=== PATIENT | male | born 1965 | race Caucasian/White ===

== ENCOUNTER 2022-06-03 15:24 | Observation (INO) | payer MEDICARE ==
[2022-06-03 16:20] LABS: Basophil (Absolute #) 0.04 x10^3/uL (0-0.4); Eosinophil % 0.3 % (0.00-5.0); Eosinophil (Absolute #) 0.02 x10^3/uL (0-0.5); Hematocrit 41.6 % (42-50); Hemoglobin 14.5 g/dL (12.5-18.0); Lymphocytes % 11.5 % (24.0-44.0); Mean Cell Volume 94.3 fL (78-100); Mean Corpuscular Hemoglobin 32.9 pg (26-32); Mean Corpuscular Hgb Concent. 34.9 g/dL (32-36); Mean Platelet Volume 9.4 fL (7.5-11.0); Monocyte (Absolute #) 1.09 x10^3/uL (0.0-1.3); Monocytes % 17.9 % (0.0-12.0); Neutrophil % 69.1 % (36.0-66.0); Platelet Count 217 x10^3/uL (150-450); Red Blood Count 4.41 x10^6/uL (4.1-5.6); Red Cell Distribution Width 12.8 % (11.5-14.0); White Blood Count 6.1 x10^3/uL (4.0-10.5)
--- NOTE | 2022-06-03 16:31 | ERPHSYRPT ---
- History of Present Illness Time Seen by Provider: 06/03/22 15:40 Exam Limitations: no limitations Patient Subjective Stated Complaint: pt here for fast heart rate today, seen cardiology today and was told to come to er if not better, he aslo co a headache and abd pain Triage Nursing Assessment: pt alert, resp easy, skin w/d/p. 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 Patient states he has been feeling unwell for the past several days. 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 Patient was sent to our ED for further evaluation. Patient denies chest pain. RN documents some abdominal pain however patient denied abdominal pain to EDMD. No diarrhea. No rash. No fever. No vomiting. Patient states he feels generalized fatigue. Symptoms are mild to moderate in intensity. No specific worsening improving factors. Patient voices no other complaints or concerns at this time. Timing/Duration: today Severity: moderate Modifying Factors: Improves With: immobilization Associated Symptoms: denies symptoms Allergies/Adverse Reactions: Tetanus Vaccines and Toxoid Allergy (Verified 06/03/22 15:29) Home Medications: Albuterol Sulfate [Albuterol Sulfate Hfa] 1 ea DAILY 06/03/22 [History] Desvenlafaxine [Desvenlafaxine ER] 1 ea DAILY 06/03/22 [History] Lisinopril 20 mg [Zestril 20 MG] 1 ea DAILY 06/03/22 [History] Metoprolol Tartrate 25 mg [Lopressor 25MG Tab] 25 mg PO DAILY 06/03/22 [History] Hx Tetanus, Diphtheria Vaccination/Date Given: No Hx Influenza Vaccination/Date Given: No Hx Pneumococcal Vaccination/Date Given: No Immunizations Up to Date: Yes Travel Risk - International Travel Have you traveled outside of the country in past 3 weeks: No - Coronavirus Screening Are you exhibiting any of the following symptoms?: No Close contact with a COVID-19 positive Pt in past 14-21 Days: No - Vaccine Status Have you recieved a Covid-19 vaccination: Yes 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: [employer] - Vaccination Dates Date of 2cond Vaccination (if applicable): 2020 - Review of Systems Constitutional: No Symptoms, No Fever, No Chills Eyes: No Symptoms Ears, Nose, & Throat: No Symptoms Respiratory: No Symptoms, No Cough, No Dyspnea Cardiac: No Symptoms, No Chest Pain, No Edema, No Syncope Abdominal/Gastrointestinal: No Symptoms, No Abdominal Pain, No Nausea, No Vomiting, No Diarrhea Genitourinary Symptoms: No Symptoms, No Dysuria Musculoskeletal: No Symptoms, No Back Pain, No Neck Pain Skin: No Symptoms, No Rash Neurological: No Symptoms, No Dizziness, No Focal Weakness, No Sensory Changes Psychological: No Symptoms Endocrine: No Symptoms Hematologic/Lymphatic: No Symptoms Immunological/Allergic: No Symptoms All Other Systems: Reviewed and Negative - Past Medical History Pertinent Past Medical History: Yes Neurological History: No Pertinent History Cardiac History: Coronary Artery Disease, Hypertension, Myocardial Infarction (CT) Respiratory History: COPD Endocrine Medical History: No Pertinent History - Past Surgical History Past Surgical History: Yes Cardiac: CABG Musculoskeletal: Orthopedic Surgery Other Surgical History: knee - Social History Smoking Status: Former smoker Exposure to second hand smoke: No Drug Use: marijuana Patient Lives Alone: No - Nursing Vital Signs Nursing Vital Signs: Initial Vital Signs Temperature 97.0 F 06/03/22 15:34 Pulse Rate 128 H 06/03/22 15:34 Respiratory Rate 18 06/03/22 15:34 Blood Pressure 131/108 06/03/22 15:34 O2 Sat by Pulse Oximetry 98 06/03/22 15:34 Pain Scale Pain Intensity 2 - Physical Exam General Appearance: no apparent distress, alert Eye Exam: PERRL/EOMI, eyes nml inspection Ears, Nose, Throat Exam: normal ENT inspection, TMs normal, pharynx normal, moist mucous membranes Neck Exam: normal inspection, non-tender, supple, full range of motion Respiratory Exam: normal breath sounds, lungs clear, airway intact, No respiratory distress Cardiovascular Exam: normal heart sounds, normal peripheral pulses, other (Well- healed midline sternotomy scar, sinus tachycardia) Gastrointestinal/Abdomen Exam: soft, normal bowel sounds, No tenderness, No mass Back Exam: normal inspection, normal range of motion, No CVA tenderness, No vertebral tenderness Extremity Exam: normal inspection, normal range of motion, pelvis stable Neurologic Exam: alert, oriented x 3, cooperative, normal mood/affect, nml cerebellar function, nml station & gait, sensation nml, No motor deficits Skin Exam: normal color, warm, dry, No rash Lymphatic Exam: No adenopathy SpO2 Interpretation: normal SpO2: 98 O2 Delivery: Room Air - Course Nursing assessment & vital signs reviewed: Yes EKG Interpreted by Me: RATE ([id number]), Sinus Tach, NORMAL AXIS, NORMAL INTERVALS (Minimal ST depression anterolateral leads) - Radiology Exams Chest X-ray Interpretation: Teleradiologist Report (Lung granuloma otherwise negative chest x-ray) - CT Exams Abdomen/Pelvis CT Interpretation: Tele-radiologist Report (No comps. Mild to moderate fluid distended small and large bowel loops with fluid leveling ileus versus enterocolitis. Fatty liver) Chest CT Interpretation: Tele-radiologist Report (No comps. Negative PE, mild e mphysema small hiatal hernia mild GERD) Ordered Tests: Active Orders 24 hr Category Date Time Status Manager Intranet STAT Care 06/03/22 15:48 Active EKG-ER Only STAT Care 06/03/22 15:47 Active IV Insertion STAT Care 06/03/22 15:47 Active ABDOMEN AND PELVIS W CONTRAST [CT] Stat Exams 06/03/22 17:21 Taken CHEST 1 VIEW (PORTABLE) Stat Exams 06/03/22 15:48 Completed CHEST WITH CONTRAST [CT] Stat Exams 06/03/22 19:01 Taken CBC W DIFF Stat Lab 06/03/22 16:15 Completed CMP Stat Lab 06/03/22 16:15 Completed LIPASE Stat Lab 06/03/22 16:15 Completed MAGNESIUM Stat Lab 06/03/22 16:15 Completed NT PRO BNP Stat Lab 06/03/22 16:15 Completed TROPONIN Q3H Lab 06/03/22 16:15 Completed TROPONIN Q3H Lab 06/03/22 19:25 Completed TROPONIN Q3H Lab 06/03/22 22:21 Received TROPONIN Q3H Lab 06/04/22 01:00 Ordered TROPONIN Q3H Lab 06/04/22 04:00 Ordered TSH [TSH, 3RD Generation] Stat Lab 06/03/22 17:53 Completed Urine Triage Profile Stat Lab 06/03/22 17:49 Completed Transfer Order Routine Transfer 06/03/22 Ordered Lab/Rad Data: Laboratory Result Diagrams 06/03/22 16:15 06/03/22 16:15 Laboratory Results 06/03/22 06/03/22 06/03/22 Range/Units 20:45 19:25 17:53 WBC (4.0-10.5) x10^3/uL RBC (4.1-5.6) x10^6/uL Hgb (12.5-18.0) g/dL Hct (42-50) % MCV (78-100) fL MCH (26-32) pg MCHC (32-36) g/dL RDW (11.5-14.0) % Plt Count (150-450) x10^3/uL MPV (7.5-11.0) fL Gran % (36.0-66.0) % Immature Gran % (Auto) (0.00-0.4) % Nucleat RBC Rel Count (0.00-0.1) % Eos # (Auto) (0-0.5) x10^3/uL Immature Gran # (Auto) (0.00-0.03) x10^3u/L Absolute Lymphs (auto) (1.0-4.6) x10^3/uL Absolute Monos (auto) (0.0-1.3) x10^3/uL Absolute Nucleated RBC (0.00-0.01) x10^3u/L Lymphocytes % (24.0-44.0) % Monocytes % (0.0-12.0) % Eosinophils % (0.00-5.0) % Basophils % (0.0-0.4) % Absolute Granulocytes (1.4-6.9) x10^3/uL Basophils # (0-0.4) x10^3/uL Sodium (137-145) mmol/L Potassium (3.5-5.1) mmol/L Chloride (98-107) mmol/L Carbon Dioxide (22-30) mmol/L Anion Gap (5-15) MEQ/L BUN (9-20) mg/dL Creatinine (0.66-1.25) mg/dL Estimated GFR ML/MIN Glucose (74-106) mg/dL Calcium (8.4-10.2) mg/dL Magnesium (1.6-2.3) mg/dL Total Bilirubin (0.2-1.3) mg/dL AST (17-59) U/L ALT (0-50) U/L Alkaline Phosphatase (38-126) U/L Troponin I < 0.012 (0.000-0.034) ng/mL NT-Pro-B Natriuret Pep (0-900) pg/mL Serum Total Protein (6.3-8.2) g/dL Albumin (3.5-5.0) g/dL Lipase (23-300) U/L TSH 3rd Generation 0.913 (0.47-4.68) mIU/L Urine Opiates Level (NEGATIVE) Ur Methadone (NEGATIVE) Urine Barbiturates (NEGATIVE) Ur Phencyclidine (PCP) (NEGATIVE) Urine Amphetamine (NEGATIVE) U Benzodiazepine Level (NEGATIVE) Urine Cocaine (NEGATIVE) Urine Marijuana (THC) (NEGATIVE) Influenza Type A Ag NEGATIVE (NEGATIVE) Influenza Type B Ag NEGATIVE (NEGATIVE) RSV (PCR) NEGATIVE (Negative) SARS-CoV-2 (PCR) NEGATIVE (NEGATIVE) 06/03/22 06/03/22 06/03/22 Range/Units 17:49 16:15 16:15 WBC (4.0-10.5) x10^3/uL RBC (4.1-5.6) x10^6/uL Hgb (12.5-18.0) g/dL Hct (42-50) % MCV (78-100) fL MCH (26-32) pg MCHC (32-36) g/dL RDW (11.5-14.0) % Plt Count (150-450) x10^3/uL MPV (7.5-11.0) fL Gran % (36.0-66.0) % Immature Gran % (Auto) (0.00-0.4) % Nucleat RBC Rel Count (0.00-0.1) % Eos # (Auto) (0-0.5) x10^3/uL Immature Gran # (Auto) (0.00-0.03) x10^3u/L Absolute Lymphs (auto) (1.0-4.6) x10^3/uL Absolute Monos (auto) (0.0-1.3) x10^3/uL Absolute Nucleated RBC (0.00-0.01) x10^3u/L Lymphocytes % (24.0-44.0) % Monocytes % (0.0-12.0) % Eosinophils % (0.00-5.0) % Basophils % (0.0-0.4) % Absolute Granulocytes (1.4-6.9) x10^3/uL Basophils # (0-0.4) x10^3/uL Sodium (137-145) mmol/L Potassium (3.5-5.1) mmol/L Chloride (98-107) mmol/L Carbon Dioxide (22-30) mmol/L Anion Gap (5-15) MEQ/L BUN (9-20) mg/dL Creatinine (0.66-1.25) mg/dL Estimated GFR ML/MIN Glucose (74-106) mg/dL Calcium (8.4-10.2) mg/dL Magnesium (1.6-2.3) mg/dL Total Bilirubin (0.2-1.3) mg/dL AST (17-59) U/L ALT (0-50) U/L Alkaline Phosphatase (38-126) U/L Troponin I < 0.012 (0.000-0.034) ng/mL NT-Pro-B Natriuret Pep (0-900) pg/mL Serum Total Protein (6.3-8.2) g/dL Albumin (3.5-5.0) g/dL Lipase 73 (23-300) U/L TSH 3rd Generation (0.47-4.68) mIU/L Urine Opiates Level NEGATIVE (NEGATIVE) Ur Methadone NEGATIVE (NEGATIVE) Urine Barbiturates NEGATIVE (NEGATIVE) Ur Phencyclidine (PCP) NEGATIVE (NEGATIVE) Urine Amphetamine NEGATIVE (NEGATIVE) U Benzodiazepine Level NEGATIVE (NEGATIVE) Urine Cocaine NEGATIVE (NEGATIVE) Urine Marijuana (THC) POSITIVE (NEGATIVE) Influenza Type A Ag (NEGATIVE) Influenza Type B Ag (NEGATIVE) RSV (PCR) (Negative) SARS-CoV-2 (PCR) (NEGATIVE) 06/03/22 06/03/22 Range/Units 16:15 16:15 WBC 6.1 (4.0-10.5) x10^3/uL RBC 4.41 (4.1-5.6) x10^6/uL Hgb 14.5 (12.5-18.0) g/dL Hct 41.6 L (42-50) % MCV 94.3 (78-100) fL MCH 32.9 H (26-32) pg MCHC 34.9 (32-36) g/dL RDW 12.8 (11.5-14.0) % Plt Count 217 (150-450) x10^3/uL MPV 9.4 (7.5-11.0) fL Gran % 69.1 H (36.0-66.0) % Immature Gran % (Auto) 0.5 H (0.00-0.4) % Nucleat RBC Rel Count 0.0 (0.00-0.1) % Eos # (Auto) 0.02 (0-0.5) x10^3/uL Immature Gran # (Auto) 0.03 (0.00-0.03) x10^3u/L Absolute Lymphs (auto) 0.70 L (1.0-4.6) x10^3/uL Absolute Monos (auto) 1.09 (0.0-1.3) x10^3/uL Absolute Nucleated RBC 0.00 (0.00-0.01) x10^3u/L Lymphocytes % 11.5 L (24.0-44.0) % Monocytes % 17.9 H (0.0-12.0) % Eosinophils % 0.3 (0.00-5.0) % Basophils % 0.7 (0.0-0.4) % Absolute Granulocytes 4.20 (1.4-6.9) x10^3/uL Basophils # 0.04 (0-0.4) x10^3/uL Sodium 127 L (137-145) mmol/L Potassium 3.8 (3.5-5.1) mmol/L Chloride 93 L (98-107) mmol/L Carbon Dioxide 24 (22-30) mmol/L Anion Gap 14.4 (5-15) MEQ/L BUN 6 L (9-20) mg/dL Creatinine 0.84 (0.66-1.25) mg/dL Estimated GFR > 60.0 ML/MIN Glucose 131 H (74-106) mg/dL Calcium 9.0 (8.4-10.2) mg/dL Magnesium 1.7 (1.6-2.3) mg/dL Total Bilirubin 0.80 (0.2-1.3) mg/dL AST 52 (17-59) U/L ALT 78 H (0-50) U/L Alkaline Phosphatase 54 (38-126) U/L Troponin I (0.000-0.034) ng/mL NT-Pro-B Natriuret Pep 398 (0-900) pg/mL Serum Total Protein 7.3 (6.3-8.2) g/dL Albumin 4.3 (3.5-5.0) g/dL Lipase (23-300) U/L TSH 3rd Generation (0.47-4.68) mIU/L Urine Opiates Level (NEGATIVE) Ur Methadone (NEGATIVE) Urine Barbiturates (NEGATIVE) Ur Phencyclidine (PCP) (NEGATIVE) Urine Amphetamine (NEGATIVE) U Benzodiazepine Level (NEGATIVE) Urine Cocaine (NEGATIVE) Urine Marijuana (THC) (NEGATIVE) Influenza Type A Ag (NEGATIVE) Influenza Type B Ag (NEGATIVE) RSV (PCR) (Negative) SARS-CoV-2 (PCR) (NEGATIVE) - Progress Progress: improved Progress Note: Patient reassessed. He remains tachycardic. Unable to tolerate p.o. Ileus versus enterocolitis observed on CAT scan. No PE observed. Patient was hyponatremic at 127. Plan of care discussed with patient. Patient agrees to admission at [facility] for further evaluation and treatment. Case discussed Dr. Rodriguez accepts admission to observation. Portions of this note were created with voice recognition technology. There may be grammatical, spelling, punctuation or sound alike errors 06/03/22 22:23 Counseled pt/family regarding: lab results, diagnosis, need for follow-up, rad results - Departure Departure Disposition: Observation Clinical Impression: Sinus tachycardia, Ileus, Enterocolitis, Fatty liver, Emphysema lung, Hiatal hernia, GERD (gastroesophageal reflux disease), Hyponatremia Condition: Stable Critical Care Time: No
--- NOTE | 2022-06-03 16:31 | XRAY ---
Indication: Palpitations. Abnormal EKG. Comparison: October 29, 2021. Portable chest remains hyperinflated and clear with incidental left apical calcified granuloma. Heart not enlarged again with CABG. Bony thorax intact. No new/acute findings.
[2022-06-03 16:45] LABS: MAGNESIUM 1.7 mg/dL (1.6-2.3)
[2022-06-03 16:48] LABS: ALBUMIN 4.3 g/dL (3.5-5.0); ALKALINE PHOSPHATASE 54 U/L (38-126); ANION GAP 14.4 MEQ/L (5-15); BLOOD UREA NITROGEN 6 mg/dL (9-20); CHLORIDE 93 mmol/L (98-107); Carbon Dioxide 24 mmol/L (22-30); Creatinine 1 0.84 mg/dL (0.66-1.25); EST GLOMERULAR FILTRATION RATE > 60.0 ML/MIN; Glucose 131 mg/dL (74-106); NT PRO BNP 398 pg/mL (0-900); Potassium 3.8 mmol/L (3.5-5.1); SGOT/AST 52 U/L (17-59); SGPT/ALT 78 U/L (0-50); SODIUM 127 mmol/L (137-145); Total Protein 7.3 g/dL (6.3-8.2)
[2022-06-03 18:10] LABS: Amphetamine,Urine NEGATIVE (NEGATIVE); Barbiturate,Urine NEGATIVE (NEGATIVE); Benzodiazepine,Urine NEGATIVE (NEGATIVE); Cocaine,Urine NEGATIVE (NEGATIVE); Methadone,Urine NEGATIVE (NEGATIVE); Opiate,Urine NEGATIVE (NEGATIVE); PCP,Urine NEGATIVE (NEGATIVE); THC,Urine POSITIVE (NEGATIVE)
[2022-06-03 21:36] LABS: INFLUENZA A NEGATIVE (NEGATIVE); INFLUENZA B NEGATIVE (NEGATIVE); RESPIRATORY SYNCTIAL VIRUS NEGATIVE (Negative); SARS-CoV-2 Xpert Express NEGATIVE (NEGATIVE)
[2022-06-03] MEDS ORDERED: Zofran 4 MG/2 ML VIAL IV PRN (22:24)
[2022-06-03] MEDS ORDERED: TYLENOL 325 MG PO PRN (22:24)
[2022-06-03] MEDS ORDERED: MORPHINE SULFATE 2 MG INJ IV PRN (22:24)
[2022-06-03] MEDS: Sodium Chloride 0.9% 1000 ML 1,000 ML IV SCH (23:44)
[2022-06-04 02:55] LABS: Absolute Neutrophil Ct (ANC) 2.85 x10^3/uL (1.4-6.9); Basophil (Absolute #) 0.05 x10^3/uL (0-0.4); Eosinophil % 0.6 % (0.00-5.0); Eosinophil (Absolute #) 0.03 x10^3/uL (0-0.5); Hematocrit 44.7 % (42-50); Hemoglobin 15.2 g/dL (12.5-18.0); Lymphocyte (Absolute #) 1.01 x10^3/uL (1.0-4.6); Lymphocytes % 19.9 % (24.0-44.0); Mean Cell Volume 95.7 fL (78-100); Mean Corpuscular Hemoglobin 32.5 pg (26-32); Mean Platelet Volume 9.6 fL (7.5-11.0); Monocytes % 21.7 % (0.0-12.0); Neutrophil % 56.2 % (36.0-66.0); Platelet Count 231 x10^3/uL (150-450); Red Blood Count 4.67 x10^6/uL (4.1-5.6); Red Cell Distribution Width 12.9 % (11.5-14.0); White Blood Count 5.1 x10^3/uL (4.0-10.5)
[2022-06-04 03:42] LABS: ALBUMIN 4.3 g/dL (3.5-5.0); ALKALINE PHOSPHATASE 58 U/L (38-126); ANION GAP 14.8 MEQ/L (5-15); BLOOD UREA NITROGEN 6 mg/dL (9-20); CHLORIDE 94 mmol/L (98-107); Calcium 9.1 mg/dL (8.4-10.2); Carbon Dioxide 23 mmol/L (22-30); Creatinine 1 0.82 mg/dL (0.66-1.25); EST GLOMERULAR FILTRATION RATE > 60.0 ML/MIN; Glucose 120 mg/dL (74-106); Potassium 3.9 mmol/L (3.5-5.1); SGOT/AST 65 U/L (17-59); SGPT/ALT 77 U/L (0-50); SODIUM 128 mmol/L (137-145); Total Protein 7.3 g/dL (6.3-8.2)
--- NOTE | 2022-06-04 08:43 | XRAY ---
Indication: Tachycardia and weakness. Pulmonary embolus. Multiple contiguous axial images obtained through the chest using 80 cc Isovue 370 contrast and PE protocol. Comparison: None Good opacification of the pulmonary arteries to include the lobar and segmental branches. No pulmonary embolus. Heart not enlarged with CABG. Aorta is minimally etcher sclerotic without aneurysm/dissection. Small subcarinal calcified node. No pathologic mediastinal/hilar lymphadenopathy. Small hiatal hernia. Small fluid in distal esophagus presumed from gastroesophageal reflux. Lungs demonstrate mild diffuse pulmonary emphysema, 4 mm anterior right middle lobe calcified granuloma, and minimal bilateral dependent atelectasis. Posterior left lower lobe demonstrates 6 mm noncalcified nodule possibly granulomatous. No infiltrate, consolidation, effusion, or pneumothorax. Bony thorax intact with minimal degenerative changes throughout the spine and sternotomy wires. CT abdomen/pelvis reported separately. Impression: 1. Negative pulmonary embolus. 2. Pulmonary emphysema. 3. Evidence for old granulomatous disease. Tiny left lower lobe noncalcified nodule possibly granulomatous. 4. Small hiatal hernia with GERD.
--- NOTE | 2022-06-04 08:46 | XRAY ---
Indication: Abdomen pain, nausea, tachycardia, and weakness. Multiple contiguous axial images obtained through the abdomen and pelvis using 80 cc Isovue 370 contrast. Comparison: None CT chest reported separately. Noncontrasted stomach unremarkable. Small and large bowel loops are mild/moderately air and fluid distended throughout with fluid leveling. Left abdomen small bowel loops demonstrates circumferential wall thickening/enhancement. Findings either ileus versus enterocolitis. No free fluid/air. Mild diffuse fatty liver. Remaining liver, gallbladder, pancreas, spleen, adrenal glands, kidneys, ureters, and bladder are unremarkable. Mild scattered aortoiliac calcifications. No AAA or pathologic retroperitoneal lymphadenopathy. Osseous structures intact with minimal degenerative changes throughout the spine. Impression: 1. Air/fluid distended small and large bowel loops with fluid leveling and bowel wall thickening, ileus versus enterocolitis. 2. Fatty liver.
--- NOTE | 2022-06-04 09:01 | PCM.HP ---
History of Present Illness - Chief Complaint Chief Complaint: sinus tachycardia History of Present Illness: is a 56 year old male who was sent to ER for evaluation by his front counter attendant Dr Orozco, he was in sinus tachycardia in the office with complaints of nausea and vomiting, poor appetite and generalized feeling poorly. he still c/o nausea, tolerated some jello, no chest pain or shortness of breath. - Review of Systems Constitutional: No Fever, No Chills Respiratory: No Cough, No Short Of Breath Cardiac: No Chest Pain Abdominal/Gastrointestinal: Abdominal Pain, Nausea, Vomiting Genitourinary Symptoms: No Dysuria Skin: No Rash Neurological: No Dizziness, No Focal Weakness, No Sensory Changes All Other Systems: Reviewed and Negative Medications & Allergies Home Medications: Home Medication List Albuterol Sulfate [Albuterol Sulfate Hfa] 1 ea DAILY 06/03/22 [History Confirmed 06/03/22] Desvenlafaxine [Desvenlafaxine ER] 1 ea DAILY 06/03/22 [History Confirmed 06/03/22] Lisinopril 20 mg [Zestril 20 MG] 1 ea DAILY 06/03/22 [History Confirmed 06/03/22] Metoprolol Tartrate 25 mg [Lopressor 25MG Tab] 50 mg PO DAILY 06/03/22 [History Confirmed 06/03/22] Allergies/Adverse Reactions: Allergies Allergy/AdvReac Type Severity Reaction Status Date / Time Tetanus Vaccines and Toxoid Allergy Verified 06/03/22 15:29 - Past Medical History Past Medical History: Yes Neurological History: No Pertinent History ENT History: No Pertinent History Cardiac History: High Cholesterol, Hypertension, Myocardial Infarction (CA) Respiratory History: COPD Endocrine Medical History: No Pertinent History Musculoskelatal History: No Pertinent History History: No Pertinent History Pyscho-Social History: Anxiety, Depression Male Reproductive Disorders: No Pertinent History - Past Surgical History Past Surgical History: Yes Neuro Surgical History: No Pertinent History Cardiac History: CABG Respiratory Surgery: No Pertinent History Genitourinary Surgical Hx: No Pertinent History Musculskeletal Surgical Hx: No Pertinent History Male Surgical History: No Pertinent History Other Surgical History: knee - Social History Smoking Status: Former smoker Exposure to second hand smoke: No Alcohol: Daily Drug Use: none - Physical Exam Vital Signs: Vital Signs - 24 hr Temp Pulse Pulse Resp BP Pulse Ox 06/04/22 07:23 98.0 F 104 H 16 185/87 97 06/04/22 04:00 98.2 F 91 H 20 151/100 95 06/04/22 01:10 98 06/03/22 22:25 98 06/03/22 22:19 98.0 F 108 H 16 135/96 97 06/03/22 22:00 110 H 124/93 98 06/03/22 21:00 108 H 16 141/109 95 06/03/22 19:07 107 H 17 152/108 95 06/03/22 18:08 107 H 18 154/102 97 06/03/22 17:50 106 H 18 144/113 98 06/03/22 16:39 115 H 25 H 130/105 94 L 06/03/22 15:39 125 H 06/03/22 15:34 97.0 F 128 H 18 131/108 98 General Appearance: no apparent distress Neurologic Exam: alert, oriented x 3 Respiratory Exam: normal breath sounds, lungs clear, No respiratory distress Cardiovascular Exam: regular rate/rhythm, normal heart sounds, normal peripheral pulses Gastrointestinal/Abdomen Exam: soft, No normal bowel sounds (decreased bowel sounds, mild distension. nontender, no guarding or rebound) Extremity Exam: normal inspection, normal range of motion, pelvis stable Skin Exam: normal color, warm, dry, No rash Results - Labs Lab/Micro Results: Lab Results-Last 24 Hours 06/03/22 06/03/22 06/03/22 Range/Units 16:15 16:15 16:15 WBC 6.1 (4.0-10.5) x10^3/uL RBC 4.41 (4.1-5.6) x10^6/uL Hgb 14.5 (12.5-18.0) g/dL Hct 41.6 L (42-50) % MCV 94.3 (78-100) fL MCH 32.9 H (26-32) pg MCHC 34.9 (32-36) g/dL RDW 12.8 (11.5-14.0) % Plt Count 217 (150-450) x10^3/uL MPV 9.4 (7.5-11.0) fL Gran % 69.1 H (36.0-66.0) % Immature Gran % (Auto) 0.5 H (0.00-0.4) % Nucleat RBC Rel Count 0.0 (0.00-0.1) % Eos # (Auto) 0.02 (0-0.5) x10^3/uL Immature Gran # (Auto) 0.03 (0.00-0.03) x10^3u/L Absolute Lymphs (auto) 0.70 L (1.0-4.6) x10^3/uL Absolute Monos (auto) 1.09 (0.0-1.3) x10^3/uL Absolute Nucleated RBC 0.00 (0.00-0.01) x10^3u/L Lymphocytes % 11.5 L (24.0-44.0) % Monocytes % 17.9 H (0.0-12.0) % Eosinophils % 0.3 (0.00-5.0) % Basophils % 0.7 (0.0-0.4) % Absolute Granulocytes 4.20 (1.4-6.9) x10^3/uL Basophils # 0.04 (0-0.4) x10^3/uL Sodium 127 L (137-145) mmol/L Potassium 3.8 (3.5-5.1) mmol/L Chloride 93 L (98-107) mmol/L Carbon Dioxide 24 (22-30) mmol/L Anion Gap 14.4 (5-15) MEQ/L BUN 6 L (9-20) mg/dL Creatinine 0.84 (0.66-1.25) mg/dL Estimated GFR > 60.0 ML/MIN Glucose 131 H (74-106) mg/dL Calcium 9.0 (8.4-10.2) mg/dL Magnesium 1.7 (1.6-2.3) mg/dL Total Bilirubin 0.80 (0.2-1.3) mg/dL AST 52 (17-59) U/L ALT 78 H (0-50) U/L Alkaline Phosphatase 54 (38-126) U/L Troponin I < 0.012 (0.000-0.034) ng/mL NT-Pro-B Natriuret Pep 398 (0-900) pg/mL Serum Total Protein 7.3 (6.3-8.2) g/dL Albumin 4.3 (3.5-5.0) g/dL Lipase (23-300) U/L TSH 3rd Generation (0.47-4.68) mIU/L Urine Opiates Level (NEGATIVE) Ur Methadone (NEGATIVE) Urine Barbiturates (NEGATIVE) Ur Phencyclidine (PCP) (NEGATIVE) Urine Amphetamine (NEGATIVE) U Benzodiazepine Level (NEGATIVE) Urine Cocaine (NEGATIVE) Urine Marijuana (THC) (NEGATIVE) Influenza Type A Ag (NEGATIVE) Influenza Type B Ag (NEGATIVE) RSV (PCR) (Negative) SARS-CoV-2 (PCR) (NEGATIVE) 06/03/22 06/03/22 06/03/22 Range/Units 16:15 17:49 17:53 WBC (4.0-10.5) x10^3/uL RBC (4.1-5.6) x10^6/uL Hgb (12.5-18.0) g/dL Hct (42-50) % MCV (78-100) fL MCH (26-32) pg MCHC (32-36) g/dL RDW (11.5-14.0) % Plt Count (150-450) x10^3/uL MPV (7.5-11.0) fL Gran % (36.0-66.0) % Immature Gran % (Auto) (0.00-0.4) % Nucleat RBC Rel Count (0.00-0.1) % Eos # (Auto) (0-0.5) x10^3/uL Immature Gran # (Auto) (0.00-0.03) x10^3u/L Absolute Lymphs (auto) (1.0-4.6) x10^3/uL Absolute Monos (auto) (0.0-1.3) x10^3/uL Absolute Nucleated RBC (0.00-0.01) x10^3u/L Lymphocytes % (24.0-44.0) % Monocytes % (0.0-12.0) % Eosinophils % (0.00-5.0) % Basophils % (0.0-0.4) % Absolute Granulocytes (1.4-6.9) x10^3/uL Basophils # (0-0.4) x10^3/uL Sodium (137-145) mmol/L Potassium (3.5-5.1) mmol/L Chloride (98-107) mmol/L Carbon Dioxide (22-30) mmol/L Anion Gap (5-15) MEQ/L BUN (9-20) mg/dL Creatinine (0.66-1.25) mg/dL Estimated GFR ML/MIN Glucose (74-106) mg/dL Calcium (8.4-10.2) mg/dL Magnesium (1.6-2.3) mg/dL Total Bilirubin (0.2-1.3) mg/dL AST (17-59) U/L ALT (0-50) U/L Alkaline Phosphatase (38-126) U/L Troponin I (0.000-0.034) ng/mL NT-Pro-B Natriuret Pep (0-900) pg/mL Serum Total Protein (6.3-8.2) g/dL Albumin (3.5-5.0) g/dL Lipase 73 (23-300) U/L TSH 3rd Generation 0.913 (0.47-4.68) mIU/L Urine Opiates Level NEGATIVE (NEGATIVE) Ur Methadone NEGATIVE (NEGATIVE) Urine Barbiturates NEGATIVE (NEGATIVE) Ur Phencyclidine (PCP) NEGATIVE (NEGATIVE) Urine Amphetamine NEGATIVE (NEGATIVE) U Benzodiazepine Level NEGATIVE (NEGATIVE) Urine Cocaine NEGATIVE (NEGATIVE) Urine Marijuana (THC) POSITIVE (NEGATIVE) Influenza Type A Ag (NEGATIVE) Influenza Type B Ag (NEGATIVE) RSV (PCR) (Negative) SARS-CoV-2 (PCR) (NEGATIVE) 06/03/22 06/03/22 06/03/22 Range/Units 19:25 20:45 22:21 WBC (4.0-10.5) x10^3/uL RBC (4.1-5.6) x10^6/uL Hgb (12.5-18.0) g/dL Hct (42-50) % MCV (78-100) fL MCH (26-32) pg MCHC (32-36) g/dL RDW (11.5-14.0) % Plt Count (150-450) x10^3/uL MPV (7.5-11.0) fL Gran % (36.0-66.0) % Immature Gran % (Auto) (0.00-0.4) % Nucleat RBC Rel Count (0.00-0.1) % Eos # (Auto) (0-0.5) x10^3/uL Immature Gran # (Auto) (0.00-0.03) x10^3u/L Absolute Lymphs (auto) (1.0-4.6) x10^3/uL Absolute Monos (auto) (0.0-1.3) x10^3/uL Absolute Nucleated RBC (0.00-0.01) x10^3u/L Lymphocytes % (24.0-44.0) % Monocytes % (0.0-12.0) % Eosinophils % (0.00-5.0) % Basophils % (0.0-0.4) % Absolute Granulocytes (1.4-6.9) x10^3/uL Basophils # (0-0.4) x10^3/uL Sodium (137-145) mmol/L Potassium (3.5-5.1) mmol/L Chloride (98-107) mmol/L Carbon Dioxide (22-30) mmol/L Anion Gap (5-15) MEQ/L BUN (9-20) mg/dL Creatinine (0.66-1.25) mg/dL Estimated GFR ML/MIN Glucose (74-106) mg/dL Calcium (8.4-10.2) mg/dL Magnesium (1.6-2.3) mg/dL Total Bilirubin (0.2-1.3) mg/dL AST (17-59) U/L ALT (0-50) U/L Alkaline Phosphatase (38-126) U/L Troponin I < 0.012 < 0.012 (0.000-0.034) ng/mL NT-Pro-B Natriuret Pep (0-900) pg/mL Serum Total Protein (6.3-8.2) g/dL Albumin (3.5-5.0) g/dL Lipase (23-300) U/L TSH 3rd Generation (0.47-4.68) mIU/L Urine Opiates Level (NEGATIVE) Ur Methadone (NEGATIVE) Urine Barbiturates (NEGATIVE) Ur Phencyclidine (PCP) (NEGATIVE) Urine Amphetamine (NEGATIVE) U Benzodiazepine Level (NEGATIVE) Urine Cocaine (NEGATIVE) Urine Marijuana (THC) (NEGATIVE) Influenza Type A Ag NEGATIVE (NEGATIVE) Influenza Type B Ag NEGATIVE (NEGATIVE) RSV (PCR) NEGATIVE (Negative) SARS-CoV-2 (PCR) NEGATIVE (NEGATIVE) 06/04/22 06/04/22 06/04/22 Range/Units 02:49 02:49 02:49 WBC 5.1 (4.0-10.5) x10^3/uL RBC 4.67 (4.1-5.6) x10^6/uL Hgb 15.2 (12.5-18.0) g/dL Hct 44.7 (42-50) % MCV 95.7 (78-100) fL MCH 32.5 H (26-32) pg MCHC 34.0 (32-36) g/dL RDW 12.9 (11.5-14.0) % Plt Count 231 (150-450) x10^3/uL MPV 9.6 (7.5-11.0) fL Gran % 56.2 (36.0-66.0) % Immature Gran % (Auto) 0.6 H (0.00-0.4) % Nucleat RBC Rel Count 0.0 (0.00-0.1) % Eos # (Auto) 0.03 (0-0.5) x10^3/uL Immature Gran # (Auto) 0.03 (0.00-0.03) x10^3u/L Absolute Lymphs (auto) 1.01 (1.0-4.6) x10^3/uL Absolute Monos (auto) 1.10 (0.0-1.3) x10^3/uL Absolute Nucleated RBC 0.00 (0.00-0.01) x10^3u/L Lymphocytes % 19.9 L (24.0-44.0) % Monocytes % 21.7 H (0.0-12.0) % Eosinophils % 0.6 (0.00-5.0) % Basophils % 1.0 (0.0-0.4) % Absolute Granulocytes 2.85 (1.4-6.9) x10^3/uL Basophils # 0.05 (0-0.4) x10^3/uL Sodium 128 L (137-145) mmol/L Potassium 3.9 (3.5-5.1) mmol/L Chloride 94 L (98-107) mmol/L Carbon Dioxide 23 (22-30) mmol/L Anion Gap 14.8 (5-15) MEQ/L BUN 6 L (9-20) mg/dL Creatinine 0.82 (0.66-1.25) mg/dL Estimated GFR > 60.0 ML/MIN Glucose 120 H (74-106) mg/dL Calcium 9.1 (8.4-10.2) mg/dL Magnesium (1.6-2.3) mg/dL Total Bilirubin 0.80 (0.2-1.3) mg/dL AST 65 H (17-59) U/L ALT 77 H (0-50) U/L Alkaline Phosphatase 58 (38-126) U/L Troponin I < 0.012 (0.000-0.034) ng/mL NT-Pro-B Natriuret Pep (0-900) pg/mL Serum Total Protein 7.3 (6.3-8.2) g/dL Albumin 4.3 (3.5-5.0) g/dL Lipase (23-300) U/L TSH 3rd Generation (0.47-4.68) mIU/L Urine Opiates Level (NEGATIVE) Ur Methadone (NEGATIVE) Urine Barbiturates (NEGATIVE) Ur Phencyclidine (PCP) (NEGATIVE) Urine Amphetamine (NEGATIVE) U Benzodiazepine Level (NEGATIVE) Urine Cocaine (NEGATIVE) Urine Marijuana (THC) (NEGATIVE) Influenza Type A Ag (NEGATIVE) Influenza Type B Ag (NEGATIVE) RSV (PCR) (Negative) SARS-CoV-2 (PCR) (NEGATIVE) 06/04/22 Range/Units 05:14 WBC (4.0-10.5) x10^3/uL RBC (4.1-5.6) x10^6/uL Hgb (12.5-18.0) g/dL Hct (42-50) % MCV (78-100) fL MCH (26-32) pg MCHC (32-36) g/dL RDW (11.5-14.0) % Plt Count (150-450) x10^3/uL MPV (7.5-11.0) fL Gran % (36.0-66.0) % Immature Gran % (Auto) (0.00-0.4) % Nucleat RBC Rel Count (0.00-0.1) % Eos # (Auto) (0-0.5) x10^3/uL Immature Gran # (Auto) (0.00-0.03) x10^3u/L Absolute Lymphs (auto) (1.0-4.6) x10^3/uL Absolute Monos (auto) (0.0-1.3) x10^3/uL Absolute Nucleated RBC (0.00-0.01) x10^3u/L Lymphocytes % (24.0-44.0) % Monocytes % (0.0-12.0) % Eosinophils % (0.00-5.0) % Basophils % (0.0-0.4) % Absolute Granulocytes (1.4-6.9) x10^3/uL Basophils # (0-0.4) x10^3/uL Sodium (137-145) mmol/L Potassium (3.5-5.1) mmol/L Chloride (98-107) mmol/L Carbon Dioxide (22-30) mmol/L Anion Gap (5-15) MEQ/L BUN (9-20) mg/dL Creatinine (0.66-1.25) mg/dL Estimated GFR ML/MIN Glucose (74-106) mg/dL Calcium (8.4-10.2) mg/dL Magnesium (1.6-2.3) mg/dL Total Bilirubin (0.2-1.3) mg/dL AST (17-59) U/L ALT (0-50) U/L Alkaline Phosphatase (38-126) U/L Troponin I < 0.012 (0.000-0.034) ng/mL NT-Pro-B Natriuret Pep (0-900) pg/mL Serum Total Protein (6.3-8.2) g/dL Albumin (3.5-5.0) g/dL Lipase (23-300) U/L TSH 3rd Generation (0.47-4.68) mIU/L Urine Opiates Level (NEGATIVE) Ur Methadone (NEGATIVE) Urine Barbiturates (NEGATIVE) Ur Phencyclidine (PCP) (NEGATIVE) Urine Amphetamine (NEGATIVE) U Benzodiazepine Level (NEGATIVE) Urine Cocaine (NEGATIVE) Urine Marijuana (THC) (NEGATIVE) Influenza Type A Ag (NEGATIVE) Influenza Type B Ag (NEGATIVE) RSV (PCR) (Negative) SARS-CoV-2 (PCR) (NEGATIVE) - Radiology Impressions Radiology Exams & Impressions: Radiology Procedures Category Date Time Status ABDOMEN AND PELVIS W CONTRAST [CT] Stat Exams 06/03/22 17:21 Completed CHEST 1 VIEW (PORTABLE) Stat Exams 06/03/22 15:48 Completed CHEST WITH CONTRAST [CT] Stat Exams 06/03/22 19:01 Completed Assessment/Plan (1) Ileus Current Visit: Yes Status: Acute Assessment & Plan: continue IV fluids, encourage ambulation. will monitor, exam is benign. likely viral etiology Code(s): K56.7 - ILEUS, UNSPECIFIED (2) Hyponatremia Current Visit: Yes Status: Acute Assessment & Plan: continue IV fluids Code(s): E87.1 - HYPO-OSMOLALITY AND HYPONATREMIA (3) Sinus tachycardia Current Visit: Yes Status: Acute Code(s): R00.0 - TACHYCARDIA, UNSPECIFIED
[2022-06-04] MEDS ORDERED: DESVENLAFAXINE 100 MG PO SCH (10:00)
[2022-06-04] MEDS ORDERED: Spiriva 18 Mcg/Cap Inhaler IH ONE (10:08)
[2022-06-04] MEDS ORDERED: VENTOLIN COMMON CANISTER IH PRN (10:23)
[2022-06-04] MEDS: Spiriva 18 Mcg/Cap Inhaler IH SCH (10:24)
[2022-06-04] MEDS: PROTONIX 40 MG IV IV SCH (10:54)
[2022-06-04] MEDS: Lopressor 50 MG PO SCH (10:55)
[2022-06-04] MEDS: PRISTIQ ER PO SCH (10:55)
[2022-06-04] MEDS: Zestril 20 MG PO SCH (10:55)
[2022-06-04] MEDS: Sodium Chloride 0.9% 1000 ML 1,000 ML IV SCH ×2 (11:50→22:01)
[2022-06-04] MEDS ORDERED: Ativan 2 MG/1 ML VIAL IV PRN (11:56)
[2022-06-05 04:54] LABS: Absolute Neutrophil Ct (ANC) 2.97 x10^3/uL (1.4-6.9); Basophil (Absolute #) 0.03 x10^3/uL (0-0.4); Eosinophil (Absolute #) 0.11 x10^3/uL (0-0.5); Hematocrit 42.4 % (42-50); Hemoglobin 13.8 g/dL (12.5-18.0); Lymphocyte (Absolute #) 1.41 x10^3/uL (1.0-4.6); Lymphocytes % 25.2 % (24.0-44.0); Mean Cell Volume 98.1 fL (78-100); Mean Corpuscular Hemoglobin 31.9 pg (26-32); Mean Corpuscular Hgb Concent. 32.5 g/dL (32-36); Mean Platelet Volume 9.2 fL (7.5-11.0); Monocyte (Absolute #) 1.03 x10^3/uL (0.0-1.3); Monocytes % 18.4 % (0.0-12.0); Platelet Count 204 x10^3/uL (150-450); Red Blood Count 4.32 x10^6/uL (4.1-5.6); Red Cell Distribution Width 12.5 % (11.5-14.0); White Blood Count 5.6 x10^3/uL (4.0-10.5)
[2022-06-05 05:23] LABS: ANION GAP 11.7 MEQ/L (5-15); BLOOD UREA NITROGEN 8 mg/dL (9-20); CHLORIDE 98 mmol/L (98-107); Calcium 8.7 mg/dL (8.4-10.2); Carbon Dioxide 26 mmol/L (22-30); Creatinine 1 0.85 mg/dL (0.66-1.25); EST GLOMERULAR FILTRATION RATE > 60.0 ML/MIN; Glucose 112 mg/dL (74-106); MAGNESIUM 1.9 mg/dL (1.6-2.3); Potassium 4.4 mmol/L (3.5-5.1); SODIUM 131 mmol/L (137-145)
[2022-06-05] MEDS: Spiriva 18 Mcg/Cap Inhaler IH SCH (07:17)
[2022-06-05 08:09] VITALS: BP 134/74; PULSE 59; O2SAT 94
--- NOTE | 2022-06-05 10:57 | PCM.DS ---
Discharge Summary Date of Admission: 06/03/22 22:18 Admitting Physician: RAJAN KELLER Primary Care Provider: YANN WADE Allergies Allergies Tetanus Vaccines and Toxoid Allergy (Verified 06/03/22 15:29) Hospital Summary - Hospital Course Hospital Course: patient admitted with abdominal pain and vomiting, ileus on CT, treated with fluids and now tolerating regular diet with no vomiting, feels well and has no pain, no complaints - Vitals & Intake/Output Vital Signs: Vital Signs Temperature 97.8 F 06/05/22 08:00 Pulse Rate 59 L 06/05/22 08:00 Respiratory Rate 21 06/05/22 08:00 Blood Pressure 134/74 06/05/22 08:00 O2 Sat by Pulse Oximetry 94 L 06/05/22 08:00 Intake & Output: Intake & Output 06/02/22 06/03/22 06/04/22 06/05/22 11:59 11:59 11:59 11:59 Intake Total 1111 2792 Output Total 500 400 Balance 611 2392 Weight 63.7 kg - Lab Result Diagrams: 06/05/22 04:41 06/05/22 04:41 Lab Results-Last 24 Hrs: Lab Results-Last 24 Hours 06/05/22 06/05/22 Range/Units 04:41 04:41 WBC 5.6 (4.0-10.5) x10^3/uL RBC 4.32 (4.1-5.6) x10^6/uL Hgb 13.8 (12.5-18.0) g/dL Hct 42.4 (42-50) % MCV 98.1 (78-100) fL MCH 31.9 (26-32) pg MCHC 32.5 (32-36) g/dL RDW 12.5 (11.5-14.0) % Plt Count 204 (150-450) x10^3/uL MPV 9.2 (7.5-11.0) fL Gran % 53.0 (36.0-66.0) % Immature Gran % (Auto) 0.9 H (0.00-0.4) % Nucleat RBC Rel Count 0.0 (0.00-0.1) % Eos # (Auto) 0.11 (0-0.5) x10^3/uL Immature Gran # (Auto) 0.05 H (0.00-0.03) x10^3u/L Absolute Lymphs (auto) 1.41 (1.0-4.6) x10^3/uL Absolute Monos (auto) 1.03 (0.0-1.3) x10^3/uL Absolute Nucleated RBC 0.00 (0.00-0.01) x10^3u/L Lymphocytes % 25.2 (24.0-44.0) % Monocytes % 18.4 H (0.0-12.0) % Eosinophils % 2.0 (0.00-5.0) % Basophils % 0.5 (0.0-0.4) % Absolute Granulocytes 2.97 (1.4-6.9) x10^3/uL Basophils # 0.03 (0-0.4) x10^3/uL Sodium 131 L (137-145) mmol/L Potassium 4.4 (3.5-5.1) mmol/L Chloride 98 (98-107) mmol/L Carbon Dioxide 26 (22-30) mmol/L Anion Gap 11.7 (5-15) MEQ/L BUN 8 L (9-20) mg/dL Creatinine 0.85 (0.66-1.25) mg/dL Estimated GFR > 60.0 ML/MIN Glucose 112 H (74-106) mg/dL Calcium 8.7 (8.4-10.2) mg/dL Magnesium 1.9 (1.6-2.3) mg/dL - Radiology Exams Ordered Rad Exams-Entire Visit: Radiology Procedures Category Date Time Status ABDOMEN AND PELVIS W CONTRAST [CT] Stat Exams 06/03/22 17:21 Completed CHEST 1 VIEW (PORTABLE) Stat Exams 06/03/22 15:48 Completed CHEST WITH CONTRAST [CT] Stat Exams 06/03/22 19:01 Completed - Procedures and Test Procedures and Tests throughout Hospitalization: Therapy Orders & Screens 06/04/22 10:23 Respiratory Therapy Assessment DAILY Comment: Diagnosis: sinus tachycardia Discharge Exam General Appearance: no apparent distress, alert Neurologic Exam: alert, oriented x 3 Respiratory Exam: normal breath sounds, lungs clear, No respiratory distress Cardiovascular Exam: regular rate/rhythm, normal heart sounds Gastrointestinal/Abdomen Exam: soft, No tenderness, No mass Extremity Exam: normal inspection, normal range of motion Final Diagnosis/Problem List - Final Discharge Diagnosis/Problem (1) Ileus Current Visit: Yes Status: Acute Code(s): K56.7 - ILEUS, UNSPECIFIED (2) Hyponatremia Current Visit: Yes Status: Acute Code(s): E87.1 - HYPO-OSMOLALITY AND HYPONATREMIA (3) Sinus tachycardia Current Visit: Yes Status: Acute Code(s): R00.0 - TACHYCARDIA, UNSPECIFIED - Discharge Disposition: Home, Self-Care Condition: Stable Prescriptions: New Ondansetron ODT 4 MG [Zofran Odt 4 mg] 4 mg PO Q6HPRN PRN #30 tab PRN Reason: Nausea Continue Metoprolol Tartrate 25 mg [Lopressor 25MG Tab] 50 mg PO DAILY Lisinopril 20 mg [Zestril 20 MG] 1 ea DAILY Desvenlafaxine [Desvenlafaxine ER] 1 ea DAILY Albuterol Sulfate [Albuterol Sulfate Hfa] 1 ea DAILY Follow up with: YANN WADE NP [Primary Care Provider] -
[2022-06-05] MEDS: Zestril 20 MG PO SCH (10:58)
[2022-06-05] MEDS: Lopressor 50 MG PO SCH (10:58)
[2022-06-05] MEDS: PROTONIX 40 MG IV IV SCH ×2 (10:58→11:00)
[2022-06-05] MEDS: PRISTIQ ER PO SCH (10:58)
== END 2022-06-05 11:56 | disposition home or self-care (01) ==
LOC: ED 15:24 → MED SURG 22:18
PROVIDERS: ADMIT Family Medicine; ATTEND Family Medicine
DX: K56.7 Ileus, unspecified (principal); E87.1 Hypo-osmolality and hyponatremia; R00.0 Tachycardia, unspecified; E78.00 Pure hypercholesterolemia, unspecified; I10 Essential (primary) hypertension; R51.9 Headache, unspecified; Z79.899 Other long term (current) drug therapy; Z20.828 Contact with and (suspected) exposure to other viral communicable diseases
CPT/HCPCS: 0241U; 36000; 36415; 71045; 71260; 74177; 80048; 80053; 80307; 83690; 83735; 83880; 84443; 84484; 85025; 85027; 93005; 93041; 93268; 94640; 94760; 99285; G0378; J2060; J2405; A9270-GY

== ENCOUNTER 2024-08-02 11:32 | Day surgery (SDC) | payer MEDICARE | END 2024-08-02 12:00 | disposition home or self-care (01) | LOC: SDC-PAIN 11:32 | PROVIDERS: ATTEND Psychiatry & Neurology Pain Medicine | DX: Z53.8 Procedure and treatment not carried out for other reasons (principal) ==